=== PATIENT | male | born 1985 | race Caucasian/White ===

== ENCOUNTER 2018-09-04 22:05 | Emergency (ER) | payer MEDICAID ==
--- NOTE | 2018-09-04 22:21 | EDM.PDOC ---
ED HPI GENERAL MEDICAL PROBLEM - General Chief Complaint: General Stated Complaint: FOOT PAIN Time Seen by Provider: 09/04/18 22:15 Source of Information: Reports: Patient History Limitations: Reports: No Limitations - History of Present Illness INITIAL COMMENTS - FREE TEXT/NARRATIVE: According to patient, he claims that his right great toe has been hurting for past one hr now. Pain started suddenly and has noticed some redness and swelling over the base of the great toe and the first metatarsal head region. no trauma to the area. cannot walk on th right foot due to pain. pain wrose with movement. he has taken 1500mg of tylenol. Pt claims he had 2 glasses of rum and shrimp with shrimp sauce to night. No previous episodes. No other complaints. - Related Data Allergies Allergy/AdvReac Type Severity Reaction Status Date / Time No Known Allergies Allergy Verified 10/07/16 11:37 Past Medical History - Past Health History Medical/Surgical History: Denies Medical/Surgical History Social & Family History - Caffeine Use Caffeine Use: Reports: Coffee, Soda ED ROS GENERAL - Review of Systems Review Of Systems: See Below Constitutional: Denies: Fever, Chills, Weakness HEENT: Denies: Rhinitis, Throat Pain, Throat Swelling Respiratory: Denies: Cough, Sputum Cardiovascular: Denies: Chest Pain, Lightheadedness Endocrine: Denies: Fatigue GI/Abdominal: Denies: Abdominal Pain, Nausea, Vomiting : Denies: Frequency, Hematuria Musculoskeletal: Reports: Foot Pain, Joint Pain, Joint Swelling. Denies: Back Pain, Muscle Pain, Muscle Stiffness Skin: Reports: Erythema. Denies: Bruising, Pruritis, Rash Neurological: Denies: Confusion, Headache Psychiatric: Denies: Agitation, Anxiety ED EXAM, GENERAL - Physical Exam Exam: See Below Exam Limited By: No Limitations General Appearance: Alert, WD/WN, No Apparent Distress Eye Exam: Bilateral Eye: EOMI, PERRL Ears: Normal External Exam, Normal Canal, Hearing Grossly Normal, Normal TMs Ear Exam: Bilateral Ear: Auricle Normal, Canal Normal, TM normal Nose: Normal Inspection, Normal Mucosa, No Blood Throat/Mouth: Normal Inspection, Normal Lips, Normal Teeth, Normal Gums, Normal Oropharynx, Normal Voice, No Airway Compromise Head: Atraumatic, Normocephalic Neck: Normal Inspection, Supple, Non-Tender, Full Range of Motion Respiratory/Chest: No Respiratory Distress, Lungs Clear, Normal Breath Sounds, No Accessory Muscle Use, Chest Non-Tender Cardiovascular: Normal Peripheral Pulses, Regular Rate, Rhythm, No Edema, No Gallop, No JVD, No Murmur, No Rub Extremities: Other (Right foot: There is erythma and swelling over the first metatarsal joint of the foot. Painful passive ROM. tender and warmth over the same area.) Neurological: Alert, Oriented, CN II-XII Intact, Normal Cognition, Normal Gait, Normal Reflexes, No Motor/Sensory Deficits Course - Vital Signs Text/Narrative:: Pt claims that he had 2 glasses of rum and shrimp with shrimp sauce to night. Started developing pain and swelling of the right great toe and first MTP joint. It does appears like gout attack. Will get CBC and Uric acid done. CBC appears normal. Uric acid is elevated. Pt reassured that he has gout attack. Advised to cut down on sea food and fish. also advised no ETOH. education on gout given. He did receive toradol 30mg Im and was sent home on indocin 25mg 3 times daily with food. for pain. if he has recurrent attack need to followup in clinic. - Orders/Labs/Meds Labs: Laboratory Tests 09/04/18 09/04/18 Range/Units 22:33 22:33 WBC 8.6 (4.0-11.0) K/uL RBC 4.29 L (4.50-6.50) M/uL Hgb 13.3 (13.0-18.0) g/dL Hct 39.3 L (40.0-54.0) % MCV 92 (76-96) fL MCH 31.0 (27.0-32.0) pg MCHC 33.8 (31.0-35.0) g/dL RDW 13.2 (11.0-16.0) % Plt Count 324 (150-400) K/uL MPV 10.2 H (6.0-10.0) fL Neut % (Auto) 51.7 (45.0-70.0) % Lymph % (Auto) 33.6 (20.0-40.0) % [place] % (Auto) 7.8 (3.0-10.0) % Eos % (Auto) 6.3 H (1.0-5.0) % Baso % (Auto) 0.6 H (0.0-0.5) % Neut # (Auto) 4.42 (2.00-7.50) K/uL Lymph # (Auto) 2.88 (1.50-4.00) K/uL [place] # (Auto) 0.67 (0.20-0.80) K/uL Eos # (Auto) 0.54 H (0.04-0.40) K/uL Baso # (Auto) 0.05 (0.02-0.10) K/uL Uric Acid 7.5 H (2.6-7.2) mg/dL Departure - Departure Time of Disposition: 23:10 Disposition: Home, Self-Care 01 Condition: Good Clinical Impression: Gout attack - Discharge Information *PRESCRIPTION DRUG MONITORING PROGRAM REVIEWED*: Not Applicable *COPY OF PRESCRIPTION DRUG MONITORING REPORT IN PATIENT JOHN: Not Applicable Instructions: Low-Purine Eating Plan, Gout, [id number] Forms: ED Department Discharge Additional Instructions: CBC appears normal. Uric acid is elevated. Pt reassured that he has gout attack. Advised to cut down on sea food and fish. also advised no ETOH. education on gout given. He did receive toradol 30mg Im and was sent home on indocin 25mg 3 times daily with food. for pain. if he has recurrent attack need to followup in clinic. - Problem List & Annotations (1) Gout attack SNOMED Code(s): 51223302, 16577861 Code(s): M10.9 - GOUT, UNSPECIFIED Status: Acute - Problem List Review Problem List Initiated/Reviewed/Updated: Yes - Assessment/Plan Assessment:: gout attack Plan: CBC appears normal. Uric acid is elevated. Pt reassured that he has gout attack. Advised to cut down on sea food and fish. also advised no ETOH. education on gout given. He did receive toradol 30mg Im and was sent home on indocin 25mg 3 times daily with food. for pain. if he has recurrent attack need to followup in clinic.
[2018-09-04] MEDS ORDERED: Ketorolac 60 MG/2 ML SDV IM ONE (23:06)
[2018-09-05 00:14] VITALS: BP 135/85
== END 2018-09-04 23:10 | disposition home or self-care (01) ==
LOC: LB.ED 22:05
DX: M10.9 Gout, unspecified (principal)
CPT/HCPCS: 36415; 84550; 85025; 96372; 99283; J1885

== ENCOUNTER 2022-03-01 22:05 | Emergency (ER) | payer BC, MEDICAID ==
[2022-03-01 22:14] VITALS: BP 143/79; PULSE 71
== END 2022-03-01 22:36 | disposition home or self-care (01) ==
LOC: LB.ED 22:05
DX: K64.9 Unspecified hemorrhoids (principal)
CPT/HCPCS: 99282

== ENCOUNTER 2024-02-29 14:54 | Emergency (ER) | payer BC, MEDICAID ==
[2024-02-29 15:40] VITALS: BP 107/67; PULSE 98
== END 2024-02-29 15:15 | disposition home or self-care (01) ==
LOC: LB.ED 14:54
DX: S83.91XA Sprain of unspecified site of right knee, initial encounter (principal); X50.1XXA Overexertion from prolonged static or awkward postures, initial encounter
CPT/HCPCS: 99283